=== PATIENT | male | born 1960 | race Caucasian/White ===

== ENCOUNTER 2018-05-21 11:44 | Day surgery (SDC) | payer OTHER ==
[~2018-05-21] VITALS: Ht 182.9 cm; Wt 95.6 kg
[~2018-05-21 11:44] MED LIST: AMLO5 PO; CENTRUM SILVER1 EAC4 PO; CLON.1 PO; Calcitriol0.25 MCG PO; Ceftriaxone2 G1 IV; Coreg6.25 MG PO; FURO40 PO; INSUASPI SC; INSULANPEN SC; IRBE150 PO; LEVFLO500 PO; LISI20 PO; LOKELMA10 GM PO; LOSA50 PO; MEROPENEM-1 GM/50 ML IV; METO5A PO; Norvasc10 MG PO; Novolog100 UNIT/2; ONDA4ODT MM; RIFA300 PO; SODBIC650; SODBIC650 PO; TRESIBA100 UNIT/1 SC; VANCO 1.51.5 GM/250 IV; VITAMIN D31000 UNIT PO
--- NOTE | 2018-05-21 12:42 | NUR ---
05/21/18 1242 [place] PHYSICIAN NOTIFIED OF STAGE IV KIDNEY DISEASE; NO NEW ORDERS R/T LACTATED RINGERS.
== END 2018-05-21 14:12 | disposition home or self-care (01) ==
LOC: ORSCSDS 11:44
PROVIDERS: Internal Medicine Gastroenterology
PROC: 0DBN8ZX Excision of Sigmoid Colon, Via Natural or Artificial Opening Endoscopic, Diagnostic (ICD-10-PCS; principal; 2018-05-21 13:00)
PROC: 0DBM8ZX Excision of Descending Colon, Via Natural or Artificial Opening Endoscopic, Diagnostic (ICD-10-PCS; principal; 2018-05-21 13:00)
DX: Z12.11 Encounter for screening for malignant neoplasm of colon (principal); D12.4 Benign neoplasm of descending colon; D12.5 Benign neoplasm of sigmoid colon; I10 Essential (primary) hypertension; E11.9 Type 2 diabetes mellitus without complications; D64.9 Anemia, unspecified; Z79.4 Long term (current) use of insulin; Z79.899 Other long term (current) drug therapy
CPT/HCPCS: 82947; 88305; J2704; J7120

== ENCOUNTER 2020-03-11 03:54 | Emergency (ER) | payer OTHER ==
[~2020-03-11] VITALS: Ht 180.3 cm; Wt 94.8 kg
[2020-03-11 04:41] LABS: BASOPHILS ABSOLUTE AUTO 0.05 K/mm3 (0.00-0.23); BASOPHILS PERCENT AUTO 0 % (0-2); EOSINOPHILS PERCENT AUTO 0 % (0-6); Hematocrit 35.4 % (37.0-53.0); Hemoglobin 11.6 g/dL (13.5-17.5); IMMATURE GRAN ABSOLUTE AUTO 0.17 K/mm3 (0.00-0.10); IMMATURE GRAN PERCENT AUTO 1 % (0-1); LYMPHOCYTES ABSOLUTE AUTO 1.05 K/mm3 (0.84-5.20); LYMPHOCYTES PERCENT AUTO 5 % (21-46); MONOCYTES ABSOLUTE AUTO 1.52 K/mm3 (0.16-1.47); MONOCYTES PERCENT AUTO 8 % (4-13); Mean Corpuscular HGB 30.8 pg (26.0-34.0); Mean Corpuscular HGB Conc 32.8 g/dL (31.5-36.5); Mean Corpuscular Volume 94 fL (80-100); Mean Platelet Volume 10.3 fL (9.1-12.4); NEUTROPHILS ABSOLUTE AUTO 16.91 K/mm3 (1.96-9.15); NEUTROPHILS PERCENT AUTO 86 % (41-73); Platelet Count 291 K/mm3 (150-400); RDW Coefficient Variation 12.2 % (11.7-14.2); RDW Standard Deviation 42.4 fL (35.1-46.3); Red Blood Cell Count 3.77 M/mm3 (4.30-5.90)
[2020-03-11] MEDS ORDERED: TRESIBA100 UNIT/2 SC (05:07)
[2020-03-11] MEDS ORDERED: NOVOLOG100 UNIT/2 (05:07)
[2020-03-11] MEDS ORDERED: AMLODIPINE BESY10 MG PO (05:08)
[2020-03-11] MEDS ORDERED: CARV25 PO (05:08)
[2020-03-11] MEDS ORDERED: CALC.25 PO (05:08)
[2020-03-11] MEDS ORDERED: HYDRA25 PO (05:09)
[2020-03-11] MEDS ORDERED: CLON.1 PO (05:09)
[2020-03-11] MEDS ORDERED: LOSA50 PO (05:09)
[2020-03-11] MEDS ORDERED: FURO40 PO (05:09)
[2020-03-11] MEDS ORDERED: THERA-D2000 UNIT PO (05:10)
[2020-03-11] MEDS ORDERED: SODBIC650 PO (05:10)
[2020-03-11 05:23] LABS: Albumin, Blood 3.6 g/dL (3.4-5.0); Albumin/Globulin Ratio 0.8 (0.8-1.8); Bilirubin, Total 0.8 mg/dL (0.1-1.0); Bun/Creatinine Ratio 15.9 (12.0-20.0); Calcium, Blood 10.1 mg/dL (8.5-10.1); Creatinine, Blood 5.59 mg/dL (0.60-1.20); Globulin, Blood 4.7 g/dL (2.2-4.0); Potassium, Blood 4.6 mmol/L (3.5-5.5); Total Protein, Blood 8.3 g/dL (6.4-8.2)
[2020-03-11 05:24] LABS: Troponin I 97.4 ng/mL (0.000-0.040)
[2020-03-11 07:17] LABS: International Normalized Ratio 1.1; Prothrombin Time Results 11.7 Sec (9.7-11.5)
== END 2020-03-11 08:18 | disposition short-term general hospital (02) ==
LOC: ER 03:54
PROVIDERS: Student in an Organized Health Care Education/Training Program
DX: A41.9 Sepsis, unspecified organism (principal); R65.20 Severe sepsis without septic shock; N17.9 Acute kidney failure, unspecified; J18.9 Pneumonia, unspecified organism; I21.4 Non-ST elevation (NSTEMI) myocardial infarction; Z79.4 Long term (current) use of insulin; Z79.899 Other long term (current) drug therapy
CPT/HCPCS: 36415; 71045; 80053; 82947; 83605; 84145; 84484; 85025; 85610; 85730; 87040; 93005; 93010; 96361; 96365; 96367; 96375; 96376; 99285-25; A9270; J0456; J0696; J1644; J2405; J7050; J7120